=== PATIENT | male | born 1955 | race Caucasian/White ===

== ENCOUNTER → 2019-02-01 | Day surgery (SDC) | payer BC ==
[~2019-02-01] MED LIST: ACETAMINOPHEN 1000 MG/100 ML IV ONE; ATORVASTATIN PO; BELLADONNA/OPIUM 60 MG SUPP PR ONE; CEFAZOLIN SOD 1 GM/NS 50ML 50 ML IV ONE; DEXAMETHASONE SOD PHOS INJ 4 MG/ML VIAL ONE; FENTANYL CITRATE/PF 100MCG/2 ML INJ ONE; IOPAMIDOL 610MG/1ML 300 MG/ML VIAL IV ONE; LACTATED RINGER'S 1,000 ML ONE; LIDOCAINE HCL 2% LOCAL INJ 5 ML SDV VIAL INJ ONE; LOSARTAN PO; MIDAZOLAM HCL 2 MG/2 ML VIAL ONE; MORPHINE SULFATE INJ 4 MG/ML INJ 1ML ONE; NORCO 5-325 TA1 EACH PO; ONDANSETRON HCL INJ 2MG/ML 2ML 2 MG/ML VIAL ONE; PROPOFOL IV EMULSION 10 MG/ML 20 ML VIAL ONE; SEVOFLURANE INHAL SOLN 250 ML PEN BTL ONE
--- OUTSIDE RECORDS SUMMARY | 2019-02-01 08:31 | XMS REPORT ---
Author Author [facility] Address Unknown Phone Unavailable Care Team Providers Care Chemistry Technical Officer Name Role Phone Unavailable Unavailable Problems This patient has no known problems. Allergies, Adverse Reactions, Alerts This patient has no known allergies or adverse reactions. Medications This patient has no known medications.
[2019-02-01 13:00] VITALS: BP 131/81
--- NOTE | 2019-02-02 00:26 | Operative Report ---
DATE OF PROCEDURE: 02/01/2019 SURGEON: Loreto España MD SERVICE: Urology. PREOPERATIVE DIAGNOSES: 1. 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 2. Right double-J stent. 3. Right ureterolithiasis. 4. Right hydronephrosis. 5. Hematuria. POSTOPERATIVE DIAGNOSES: 1. 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 2. Right double-J stent. 3. Right ureterolithiasis. 4. Right hydronephrosis. 5. Hematuria. OPERATIONS PERFORMED: 1. Cystoscopy and removal of double-J stent from the right side. 2. Right retrograde pyelogram under fluoroscopic control. 3. Right ureteroscopy with removal of the ureteral calculus. 4. Placement of double-J stent, 6-Montserratian 26 cm long to the right side. This is done for the hydronephrosis. 5. Interpretation of x-ray, radiologist not present. 6. Supervision of fluoroscopy, radiologist not present. 7. Transurethral resection of bladder tumor. RAIL TRACK LAYER: None. ANESTHESIA: General. CLINICAL INDICATION NOTE: This is a 63-year-old patient, who was found to have hematuria and previous cystoscopy revealed a tumor on the left side of the bladder. The patient has a double-J stent on the right side and there is a question whether there is any lesion above the small stone. The patient was brought for assessment of the right side as well as resection and removal of the bladder tumor. Procedure was discussed with the patient. Potential benefits and complications discussed, explained and accepted. DESCRIPTION OF PROCEDURE AND FINDINGS: After appropriate level of anesthesia was achieved, the patient was placed in the lithotomy position, prepped and draped in a sterile fashion. Urethra inspected and it is unremarkable. Bladder outlet is normal. Bladder mucosa demonstrates a tumor on the right side of the bladder just above the trigone. Double-J stent is protruding to the right side. On the left side of the bladder just above the trigone, double-J stent is protruding from the right ureteral orifice. The bladder was inspected carefully with a 30 degree as well as a 70 degree. No other tumors were identified. Following this, the double-J stent was removed from the right side. Open-ended catheter was inserted. Retrograde pyelogram suggests a small calculus in the distal ureter and minimal dilation of the upper collecting system. A wire was kept in place and a flexible ureteroscopy was done. Stones were identified. They were removed. The wire was kept in place. A 6-Montserratian, 26 cm long double-J stent was properly positioned on the right side. This was verified by x-ray and anoscopy. Following this, the scope was removed. The resectoscope was inserted and systematic resection of the whole tumor was done. Specimen of superficial and deep tumor base were sent to Pathology. The stone from the right ureter was also sent to Pathology. Of note that this was fragmented fragments of stone. Following this, B and O suppository was inserted and a 22-Montserratian 3-way Reynolds catheter was inserted and patient was transferred in satisfactory condition to recovery. No significant bleeding was present after the coagulation of the base of the tumor. The patient will be followed as outpatient. Postoperative instructions given. MD LETICIA Patten/DARLENE /[id number]
== END | disposition home or self-care (01) ==
LOC: OR 08:28
PROVIDERS: ATTEND Urology
DX: C67.9 Malignant neoplasm of bladder, unspecified (principal); N20.1 Calculus of ureter; Z46.6 Encounter for fitting and adjustment of urinary device; N13.30 Unspecified hydronephrosis; I10 Essential (primary) hypertension; E78.5 Hyperlipidemia, unspecified; Z88.6 Allergy status to analgesic agent; Z01.810 Encounter for preprocedural cardiovascular examination; Z96.651 Presence of right artificial knee joint; Z87.891 Personal history of nicotine dependence
CPT/HCPCS: 52235; 52332; 74420; 88300; 88307; 93005; C1758; C2617; J0131; J0690; J1100; J2001; J2250; J2270; J2405; J2704; J7121; Q9967; 88305